=== PATIENT | male | born 1965 | race African-American/Black ===

== ENCOUNTER 2022-07-26 16:44 | Emergency (ER) | payer MEDICAID, OTHER ==
[~2022-07-26] VITALS: Ht 177.8 cm; Wt 78.2 kg
[2022-07-26 19:23] VITALS: BP 107/68
== END 2022-07-26 19:26 | disposition home or self-care (01) ==
LOC: ER 16:47
DX: M54.2 Cervicalgia (principal); M25.512 Pain in left shoulder; M25.511 Pain in right shoulder; V43.52XA Car driver injured in collision with other type car in traffic accident, initial encounter; Y93.89 Activity, other specified; Y92.410 Unspecified street and highway as the place of occurrence of the external cause; Y99.8 Other external cause status

== ENCOUNTER 2023-06-12 14:22 | Emergency (ER) | payer MEDICAID ==
[~2023-06-12] VITALS: Ht 177.8 cm; Wt 79.0 kg
[2023-06-12 14:43] LABS: Hematocrit 46.4 % (41.0-53.0); Mean Corpuscular Hemoglobin 30.7 pg (28.0-32.0); Mean Corpuscular Hgb Conc. 34.4 g/dL (32.0-36.0); Mean Corpuscular Volume 89.4 fL (80.0-100.0); Red Blood Cells 5.19 10^6/uL (4.5-5.90); Red Cell Distribution Width 13.5 % (11.8-14.3); White Blood Cell 4.3 10^3/uL (4.4-10.8)
[2023-06-12 14:44] LABS: Basophils % (manual) 0 (0.0-2.0); Blast Cells 0; Metamyelocytes % 0; Promyelocytes % 0; Reactive Lymphocytes 0
[2023-06-12 15:04] LABS: Calcium 8.5 mg/dL (8.5-10.1); Magnesium 2.7 mg/dL (1.6-2.6); Potassium 3.8 mmol/L (3.5-5.1)
[2023-06-12 15:07] LABS: BUN/Creatinine Ratio 13.4 (10.0-20.0); Bilirubin, Total 0.8 mg/dL (0.2-1.0); Total Protein 7.6 g/dL (6.4-8.2)
[2023-06-12 15:48] LABS: Band Neutrophils % (manual) 2; Eosinophils % (manual) 19 (0-7); Lymphocytes % (manual) 19 (10.0-50.0); Monocytes % (manual) 18 (0-12); Myelocytes % 2
[2023-06-12 15:50] VITALS: BP 113/72; PULSE 91; RESP 18; TEMP 98; O2SAT 93
== END 2023-06-12 15:59 | disposition home or self-care (01) ==
LOC: ER 14:22
DX: R07.89 Other chest pain (principal); R05.9 Cough, unspecified; E78.5 Hyperlipidemia, unspecified
CPT/HCPCS: 36415; 71045; 80053; 83735; 84484; 85007; 85027; 93005